=== PATIENT | female | born 1985 ===

== ENCOUNTER 2016-06-03 06:06 | Inpatient (IN) | payer BC ==
[2016-06-03] MEDS ORDERED: Lactated Ringer's 2,000 ML IV ONE (07:00)
[2016-06-03 07:05] VITALS: BMI 28.5
[2016-06-03] MEDS ORDERED: cefOXitin Sodium 1 GM in Sodium Chloride 0.9% 100 ML IVPB ONE (07:06)
[2016-06-03] MEDS ORDERED: Oxytocin 30 units/LR 500ML 500 ML IV ONE ×2 (07:57→11:28)
[2016-06-03 08:02] LABS: HEMATOCRIT 35.1 % (34.0-47.0); MEAN CELL VOLUME 92.3 fl (81.0-99.0); MEAN CORPUSCULAR HEMOGLOBIN 30.5 pg (27.0-31.0); RED CELL DISTRIBUTION WIDTH 13.4 % (11.5-14.5); WHITE BLOOD COUNT 8.5 K/uL (4.8-10.8)
[2016-06-03 08:28] VITALS: BP 122/77; PULSE 65; RESP 17; TEMP 98.5; O2SAT 99
[2016-06-03] MEDS ORDERED: Morphine 1 mg/ml preservative-free Inj(Duramorph) ONE (09:23)
[2016-06-03] MEDS ORDERED: Phenylephrine 10 mg/ml Inj ONE (09:23)
--- NOTE | 2016-06-03 10:59 | OBADHP ---
Datetime: 06/03/2016 10:53 IP Chief Complaint Other: Prev C/S IP Adm Impression Other: pre C/S in early labor Admit Comment, IP Provider: Prev C/S in early labor GBS neg Admit and for RC/S Declines BTL Extremities - PN: Normal Abdomen - PN: Abnormal Breast - PN: Normal Lungs - PN: Normal Heart - PN: Normal Thyroid - PN: Normal Neurologic - PN: Normal HEENT - PN: Normal Presentation-Admit: cephalic FHR - Baseline A Provider: 140's Membranes, Provider: Intact Contraction Comments Provider: xin UC Comments, ACOG Physical Exam: Abd soft NT gravid Old scar Ext no calf tenderness. Gestation - Est Wks by US: 39 wks IP Hx Assessment: The History has been Reviewed and is Current IP Chief Complaint: Uterine contractions; Other NICHD Variability Prov Fetus A: Moderate 6-25bpm NICHD Accel Fetus A IP Provider: 10X10 NICHD Decel Fetus A IP Provider: None Dilatation, Provider: FT to 1cm Effacement, Provider: 50% Genitourinary Exam: Normal DTRs - PN: Normal EGA AdmitDate IP: 39.1 IP Adm Impression: Term, intrauterine IP Admit Plan: Admit to unit; Initiate Section protocol
--- NOTE | 2016-06-03 12:25 | OBDS ---
DELIVERY PERSONNEL Delivery Doctor: Toya Deutsch MD Service Desk Associate: Elke Mcginnis RN/Nohemi Abel RN Anesthesiologist: bhavna valderrama MATERNAL INFORMATION Delivery Anesthesia: Spinal Medications in Delivery: pitocin 30/500 and mefoxin 1 g Estimated Blood Loss (ml): 800 Placenta Cultured: No Maternal Complications: None Provider Comments: see surgeons note dictated LABOR SUMMARY EDC: 06/09/2016 00:00 No. Babies in Womb: 1 Attempted: No Labor Anesthesia: Intrathecal LABOR INFORMATION Reason for Induction: Not Applicable Oxytocin: N/A Group B Beta Strep: Negative Antibiotics # of Doses: mefoxin 1x Steroids Given: None Reason Steroids Not Administered: Not Applicable MEMBRANES Membranes Rupture Method: Artificial Rupture of Membranes: 06/03/2016 11:26 Length of Rupture (hrs): 0.02 Amniotic Fluid Color: Clear Amniotic Fluid Amount: Moderate Amniotic Fluid Odor: None STAGES OF LABOR Stage 3 hrs: 0 Stage 3 min: 1 VAGINAL DELIVERY Episiotomy: None Laceration Extension: N/A Laceration Type: None Laceration Repair: Not Applicable Sponge Count Correct: N/A Sharps Count Correct: N/A CSECTION DELIVERY Primary Indication: Repeat Elective Secondary Indication: N/A CSection Urgency: Elective CSection Incidence: Repeat Labor: No Labor Elective: N/A CSection Incision: Lower Uterine Transverse BABY A INFORMATION Infant Delivery Date/Time: 06/03/2016 11:27 Method of Delivery: Vaginal Born in Route : No : N/A Forceps: N/A Vacuum Extraction: N/A Shoulder Dystocia : No SHOULDER DYSTOCIA BABY A Infant Delivery Date/Time: 06/03/2016 11:27 PRESENTATION/POSITION BABY A Presentation: Cephalic Cephalic Presentation: Vertex Vertex Position: Left Occipital Anterior Breech Presentation: N/A PLACENTA INFORMATION BABY A Placenta Delivery Time : 06/03/2016 11:28 Placenta Method of Delivery: Manual Removal Placenta Status: Delivered SCORES BABY A Heart Rate 1 min: >100 bpm Resp Effort 1 min: Good Cry Reflex Irritability 1 min: Cough or Sneeze or Pulls Away Muscle Tone 1 min: Active Motion Color 1 min: Body Schlater, Extremities Blue Resuscitation Effort 1 min: N/A SCORE 1 MIN: 9 Heart Rate 5 min: >100 bpm Resp Effort 5 min: Good Cry Reflex Irritability 5 min: Cough or Sneeze or Pulls Away Muscle Tone 5 min: Active Motion Color 5 min: Body Schlater, Extremities Blue Resuscitation Effort 5 min: N/A SCORE 5 MIN: 9 INFANT INFORMATION BABY A Gestational Age at Delivery: 39.1 Gestational Status: Term Outcome : Liveborn Infant Condition : Stable Sex: Male IDENTIFICATION/MEDS BABY A ID Band Number: [id number] ID Band Location: Left Leg; Left Arm WEIGHT/LENGTH BABY A Infant Birthweight (gms): 3030 Weight (lb): 6 Infant Weight (oz): 11 Infant Length Inches: 19.50 Length cms: 49.5 CORD INFORMATION BABY A No. Cord Vessels: 3 Nuchal Cord : Around Neck x1, Loose Cord Blood Taken: Yes Suction: Mouth; Nose ASSESSMENT BABY A Complications: None Physical Findings at Delivery: Within Normal Limits Respirations: Appears Normal [employer] Associate Professor/ALS Called : No Care By: Dr vanegas Transferred To: Remains with Mother
[2016-06-03] MEDS ORDERED: Oxycodone/Acetaminophen 5/325 mg Tab PO PRN ×3 (13:04→15:35)
[2016-06-03] MEDS ORDERED: Benzocaine/Menthol SPRAY TOP PRN ×2 (13:04→15:35)
[2016-06-03] MEDS ORDERED: DiphenhydrAMINE 50 mg/ml Inj IVP PRN ×2 (14:09→15:35)
[2016-06-03] MEDS: Lactated Ringer's 1,000 ML IV SCH (22:25)
[2016-06-04] MEDS: Lactated Ringer's 1,000 ML IV SCH (06:14)
[2016-06-04 07:15] LABS: BASO % 0.4 % (0.0-2.0); EOS # 0.1 K/uL (0.0-0.7); EOS % 0.5 % (0.0-4.0); HEMATOCRIT 29.7 % (34.0-47.0); LYMPH # 1.4 K/uL (1.0-4.3); LYMPH % 12.7 % (20.0-40.0); MEAN CELL VOLUME 91.6 fl (81.0-99.0); MEAN CORPUSCULAR HEMOGLOBIN 31.2 pg (27.0-31.0); MEAN CORPUSCULAR HGB CONC 34.1 g/dL (33.0-37.0); MEAN PLATELET VOLUME 9.9 fl (7.2-11.7); MONO # 0.6 K/uL (0.0-0.8); MONO % 5.3 % (0.0-10.0); NEUT # 8.6 K/uL (1.8-7.0); NEUT % 81.1 % (50.0-75.0); RED CELL DISTRIBUTION WIDTH 13.5 % (11.5-14.5); WHITE BLOOD COUNT 10.7 K/uL (4.8-10.8)
[2016-06-04] MEDS: Multivitamin With Minerals Tab PO SCH (08:54)
[2016-06-04] MEDS: Oxycodone/Acetaminophen 5/325 mg Tab PO PRN (08:56)
[2016-06-04] MEDS ORDERED: Multivitamin With Minerals Tab PO SCH (09:00)
--- NOTE | 2016-06-04 18:17 | OBPPN ---
Datetime: 06/04/2016 18:11 PP Pain Prov: Within normal limits PP Pain Prov comment: Denies SOB, chest pains or leg pain PP Nausea Prov: Denies PP Flatus Prov: Yes PP BM Prov: No PP Nausea Prov comment: voiding well PP Flatus Prov comment: No C/F PP Breasts Prov: Normal PP Lungs Prov: Normal PP Abdomen/Uterus Prov: Abnormal PP Lochia Prov: Normal PP Vulva/Perineum Prov: Normal PP CVA Tenderness Prov: Normal PP C/S Incision Prov: Normal PP Progress Prov: Normal PP Comments Phys Exam Prov: Abd soft not distended fundus firm at umb Dressing removed inclision cielo an and dry no active bleeding or suppt sutures in place Ext no calf tenderness PP Impression Prov: Normal progression PP Plan Prov: Continue present management PP Progress Note Prov: oob and ambulation Continue PO care Tolerating diet well IP PP Procedures: None Vital Signs Provider PP: Reviewed
[2016-06-05] MEDS: Oxycodone/Acetaminophen 5/325 mg Tab PO PRN ×2 (06:40→17:10)
--- NOTE | 2016-06-05 07:53 | OBPPN ---
Datetime: 06/05/2016 07:47 PP Pain Prov: Within normal limits PP Pain Prov comment: No SOB, chest pain or leg pain PP Nausea Prov: Denies PP Flatus Prov: Yes PP BM Prov: No PP Breasts Prov: Normal PP Lungs Prov: Normal PP Abdomen/Uterus Prov: Abnormal PP Lochia Prov: Normal PP Vulva/Perineum Prov: Normal PP CVA Tenderness Prov: Normal PP Extremities Prov: Normal PP C/S Incision Prov: Normal PP Progress Prov: Normal PP Comments Phys Exam Prov: Abd soft, not distended fundus firm below the umb. Incision clean and dry no suppt or discharge Sutures in place, Ext no calf tenderness PP Impression Prov: Normal progression PP Plan Prov: Continue present management PP Progress Note Prov: Dulcolax suppt this am, continue po care and OOB and ambulation IP PP Procedures: None Vital Signs Provider PP: Reviewed
[2016-06-05] MEDS: Multivitamin With Minerals Tab PO SCH (09:16)
[2016-06-05] MEDS: Simethicone 80 mg Chewtab PO PRN (20:20)
--- NOTE | 2016-06-06 07:28 | OBPPN ---
Datetime: 06/06/2016 07:25 PP Pain Prov: Within normal limits PP Pain Prov comment: No SOB, chest pains or leg pains PP Nausea Prov: Denies PP Flatus Prov: Yes PP BM Prov: Yes PP Nausea Prov comment: No C/F PP Breasts Prov: Normal PP Lungs Prov: Normal PP Abdomen/Uterus Prov: Abnormal PP Lochia Prov: Normal PP Vulva/Perineum Prov: Normal PP CVA Tenderness Prov: Normal PP Extremities Prov: Normal PP C/S Incision Prov: Normal PP Progress Prov: Normal PP Comments Phys Exam Prov: Abd soft ND, fundus firm below the umb. Incision clean and dry no activ e bleeding or sign or infection. Ext no calf tenderness PP Impression Prov: Normal progression PP Plan Prov: Discharge PP Progress Note Prov: D/C home with instructions IP PP Procedures: None Vital Signs Provider PP: Reviewed
--- NOTE | 2016-06-06 07:33 | OBDCSUM ---
Datetime: 06/06/2016 07:28 Discharged to, Provider: Home Follow up at, Provider: Dr Deutsch Disch Instr Activity: Bedrest; May be up to bathroom; May be up for meals; May Shower Disch Instr Diet: Regular Discharge Instructions, Provider: Routine instructions given Discharge Diagnosis, Provider: Term Delivered Discharge Time: 06/06/2016 07:28 Follow up in weeks, Provider: 1 wk Disch Referrals: None Contraception discussed, Prov: Yes Disch Activity Restrictions: No exercising; No lifting; No driving; Minimize walking; Minimize stair -climbing; No sexual activity; Nothing in vagina - [place], tampons, douche Discharge Comment, Provider: rx for Percocet given Continue po care Instructions given Contraception after Delivery: Undecided
[2016-06-06] MEDS: Multivitamin With Minerals Tab PO SCH (09:05)
[2016-06-06] MEDS: Simethicone 80 mg Chewtab PO PRN (09:05)
--- NOTE | 2016-06-07 13:40 | OP ---
PROCEDURE DATE: 06/03/2016 PREOPERATIVE DIAGNOSES: 1. at term. 2. Early labor. 3. Previous section. POSTOPERATIVE DIAGNOSES: 1. at term. 2. Early labor. 3. Previous section. 4. Pelvic adhesions. SURGEON: Dr. Deutsch. FACULTY RESEARCH ASSISTANT: Dr. Oneil who was there for the entire duration of the case. Director Inbound Sales needed in del ivering of the baby, providing exposure, opening up the abdomen and closure of the abdomen. ANESTHESIA USED: Spinal by Dr. García. ESTIMATED BLOOD LOSS: 800 mL. DRAINS USED: None. REPLACEMENTS USED: None. FINDINGS: 1. Delivered a living baby boy. Baby appears term. Baby cries spontaneously. Pediatric in attenda nce. score of 9 and 9. 2. Amniotic fluid clear. 3. Nuchal cord x 1, loose. 4. Placenta complete and intact. 5. Adhesions of the omentum to the anterior abdominal wall and the anterior aspect of the womb to th e anterior abdominal wall. Some of these adhesions lysed without any complications. PROCEDURE: The patient was taken to the operating room and placed on the operating table in a supine position with an indwelling Berrios catheter in the bladder draining clear fluid. At this time, spina l anesthesia was then induced. The patient was then replaced in a supine position. Venodyne boots w ere applied to both legs. The abdomen was then draped and prepped in the usual sterile manner. Foll owing this, we then proceeded to test anesthesia, found to be well secure and a Pfannenstiel incision was then made using sharp dissection along the edges of the previous incision. The incision was the n extended down to subcutaneous tissue using sharp dissection. Hemostasis obtained by means of elect rocoagulation. Fascia was then identified, was then entered at the midline. Incision in the fascia was then entered laterally in each direction. At this time, the rectus muscle was then identified, w as then slit at the midline exposing the peritoneum. Peritoneal layer was then picked up using 2 Paras ly clamps and retracted superiorly using the 2 Janelle clamps and then it was entered using sharp disse ction. Incision was then extended superiorly and inferiorly under direct visualization. At this dontae e, we then proceeded to note some adhesions of the omentum to the anterior abdominal wall and the ant erior aspect of the womb to the anterior abdominal wall. The bladder was then identified, was then r etracted inferiorly using a [place] retractor. The low transverse segment of the uterus was then huey ntified and the visceral peritoneum covering this area was then entered using sharp dissection. Usin g blunt dissection, a bladder flap was then created and retracted inferiorly using the same Jude r etractor. An incision was then made in the low transverse segment of the uterus. Upon entering the uterine cavity, clear fluid noted to be present. The incision was then extended laterally in each di rection using bandage scissors. Using a manual scooping procedure, a living baby boy was then delive red. There was a loop of cord around the neck, undone prior to full delivery. The baby was immediat sol and aggressively aspirated using bulb suction. The baby cried spontaneously. The umbilicus was then doubly clamped, cut and the baby handed to the pediatric personnel who was standing by. Samples of cord blood were then obtained and the placenta was then delivered complete and intact. At this t benji, the edges of the uterine incision was secured using multiple T clamps. The uterus was then atte mpted to exteriorize, but adhesions present in the anterior aspect of the womb and the anterior abdom inal wall. These adhesions were then lysed using blunt and sharp dissection without any complication s. The uterus was then exteriorized. Uterine cavity was then thoroughly cleaned using moist lap pad . The uterus was massaged and contracted well. Uterine incision was then secured using 0 Vicryl sut ure in a continuous interlocking manner. A second layer was also applied using 0 Vicryl suture in a continuous manner. Hemostasis checked and found to be well secure. Area of lysis and the anterior a spect of the womb was then hemostatically secured by means of 0 Vicryl suture in a [id number] ma nner. Hemostasis checked and found to be well secure. The bladder flap was then approximated using a 2-0 Vicryl in a continuous manner. All operative areas checked, hemostatically secure. The pelvic cavity was then irrigated using saline solution and the uterus was then allowed to retract back into its original position. Both tubes and ovaries appear grossly within normal limits to inspection alice aterally. At this time, we then proceeded to lyse some of the omental adhesions to the anterior abdo richard wall in order to prevent future entrapment of the bowel. These were then lysed using blunt and sharp dissection. Hemostasis obtained by means of 2-0 Vicryl free ties. All operative areas checke d, hemostatically secure and the peritoneum was then closed using 0 Vicryl suture in a continuous man ner. Hemostasis checked and found to be free of defects. After closing the peritoneum, the rectus m uscle was then closed at the midline using the same 0 Vicryl suture in a continuous manner. Fascia w as then identified, was then approximated using a #1 Vicryl suture. Fascia was then checked and foun d to be free of defects. Subcutaneous tissue was then irrigated using saline solution and approximat ed using several interrupted 2-0 plain sutures. The skin was then approximated using a 3-0 Prolene i n a subcuticular fashion. Steri-Strips were then applied. The patient tolerated the procedure well. There were no complications. She was transferred to the recovery room in satisfactory condition. Clear fluid noted to be present in the Berrios bag at this time. Sponge, instrument, and needle counts were correct x 3. Gene Deutsch MD cc: 71 TT: 06/07/2016 13:37:59 dwight
== END 2016-06-06 12:40 | disposition home or self-care (01) | DRG 766 ==
LOC: H.EROB2 06:06 → H.L&D 07:05 → H.OB/GYN 15:25
PROVIDERS: ADMIT Specialist; ATTEND Specialist
PROC: 10D00Z1 Extraction of Products of Conception, Low, Open Approach (ICD-10-PCS; principal; 2016-06-03)
PROC: 4A1HXCZ Monitoring of Products of Conception, Cardiac Rate, External Approach (ICD-10-PCS; 2016-06-03)
DX: O34.211 Maternal care for low transverse scar from previous cesarean delivery (principal); K66.0 Peritoneal adhesions (postprocedural) (postinfection); Z37.0 Single live birth; N85.8 Other specified noninflammatory disorders of uterus; Z3A.39 39 weeks gestation of pregnancy; O69.81X0 Labor and delivery complicated by cord around neck, without compression, not applicable or unspecified